=== PATIENT | male | born 1955 | race Caucasian/White ===

== ENCOUNTER 2021-04-18 12:05 | Inpatient (IN) | payer OTHER ==
[2021-04-18] MEDS ORDERED: NICOTINE 10 MG CARTRIDGE (INHALER) IH PRN (12:22)
[2021-04-18] MEDS ORDERED: MENTHOL/PHENOL 1 EACH UD MM PRN (12:22)
[2021-04-18] MEDS ORDERED: MAG HYDROX/AL HYDROX/SIMETH 30 ML UNIT-DOSE CUP PO PRN (12:22)
[2021-04-18] MEDS ORDERED: ACETAMINOPHEN 325 MG TABLET (FP) PO PRN ×2 (12:22)
[2021-04-18] MEDS ORDERED: BUPRENORPHINE HCL 150 MCG, BUPRENORPHINE HCL 75 MCG BC ONE (12:22)
[2021-04-18] MEDS ORDERED: ONDANSETRON *ODT* 4 MG TABLET SL PRN (12:22)
[2021-04-18] MEDS ORDERED: BISMUTH SUBSALICYLATE 524 MG/30 ML PO PRN (12:22)
[2021-04-18] MEDS ORDERED: MAGNESIUM CITRATE 300 ML BOTTLE PO PRN (12:22)
[2021-04-18] MEDS ORDERED: chlordiazePOXIDE HCL 25 MG CAPSULE PO PRN (12:22)
[2021-04-18] MEDS ORDERED: IBUPROFEN 400 MG TABLET (FP) PO PRN (12:22)
[2021-04-18] MEDS ORDERED: BUPRENORPHINE HCL 75 MCG FILM BC ONE (12:59)
[2021-04-18] MEDS ORDERED: BUPRENORPHINE HCL 150 MCG FILM BC ONE (12:59)
[2021-04-18] MEDS: cloNIDine HCL 0.1 MG TABLET PO PRN (13:08)
[2021-04-18] MEDS ORDERED: cloNIDine HCL 0.1 MG TABLET PO ONE (14:00)
[2021-04-18] MEDS: PRENATAL VITAMINS W/ FOLIC ACID TABLET (FP) PO SCH (14:58)
[2021-04-18] MEDS: NICOTINE 14 MG/24 HOURS TOPICAL PATCH TD SCH (14:58)
[2021-04-18] MEDS: hydrOXYzine PAMOATE 25 MG CAPSULE (FP) PO SCH ×3 (14:58→22:10)
[2021-04-18] MEDS: chlordiazePOXIDE HCL 25 MG CAPSULE PO SCH ×3 (14:59→22:08)
[2021-04-18] MEDS: MAGNESIUM HYDROX 2400MG/30ML ORAL SUSPENSION 30 ML CUP PO PRN (15:02)
[2021-04-18 17:21] LABS: ALBUMIN 4.4 g/dl (3.4-5.0); BLOOD UREA NITROGEN 18.1 mg/dL (7-18); CALCIUM 9.6 mg/dL (8.5-10.1); HEMATOCRIT 45.2 % (35.4-49); HEMOGLOBIN 14.7 GM/dL (11.7-16.9); MCH 30.6 pg (25.7-33.7); MCHC 32.6 g/dl (32.0-35.9); MEAN CELL VOLUME 93.7 fl (80-96); MEAN PLT VOLUME 9.5 fl (7.5-11.1); PLATELET COUNT 270 10^3/uL (134-434); RBC 4.82 M/mm3 (4.00-5.60); RDW 14.6 % (11.9-15.9); WHITE BLOOD COUNT 9.8 K/mm3 (4.0-10.0)
[2021-04-18 17:24] LABS: CREATININE 1.1 mg/dL (0.55-1.3)
[2021-04-18 17:26] LABS: BILIRUBIN,TOTAL 1.7 mg/dL (0.2-1); TOT PROT 8.3 g/dl (6.4-8.2)
[2021-04-18 18:05] VITALS: BMI 19.4
[2021-04-18] MEDS: MELATONIN 5 MG TABLETS PO SCH (22:05)
[2021-04-18] MEDS: THIAMINE HCL 100 MG TABLET (FP) PO SCH (22:05)
[2021-04-18] MEDS: QUEtiapine FUMARATE 50 MG TABLET PO SCH (22:08)
[2021-04-18] MEDS: PRAZOSIN HCL 1 MG CAPSULE PO SCH (22:09)
[2021-04-18] MEDS: busPIRone HCL 10 MG TABLET (FP) PO SCH (22:09)
[2021-04-19] MEDS ORDERED: BUPRENORPHINE HCL 150 MCG FILM BC ONE ×2 (04:52→17:21)
[2021-04-19] MEDS ORDERED: BUPRENORPHINE HCL 75 MCG FILM BC ONE ×2 (04:53→17:20)
[2021-04-19] MEDS: METHOCARBAMOL 500 MG TABLET PO PRN ×2 (05:41→17:59)
[2021-04-19] MEDS: hydrOXYzine PAMOATE 25 MG CAPSULE (FP) PO SCH ×5 (05:42→22:25)
[2021-04-19] MEDS: chlordiazePOXIDE HCL 25 MG CAPSULE PO SCH ×4 (05:42→22:25)
[2021-04-19] MEDS: BUPRENORPHINE HCL 150 MCG, BUPRENORPHINE HCL 75 MCG BC SCH ×2 (05:43→18:00)
[2021-04-19] MEDS: MAGNESIUM HYDROX 2400MG/30ML ORAL SUSPENSION 30 ML CUP PO PRN (05:45)
[2021-04-19] MEDS: busPIRone HCL 10 MG TABLET (FP) PO SCH ×2 (10:13→22:25)
[2021-04-19] MEDS: NICOTINE 14 MG/24 HOURS TOPICAL PATCH TD SCH (10:13)
[2021-04-19] MEDS: PRENATAL VITAMINS W/ FOLIC ACID TABLET (FP) PO SCH (10:14)
[2021-04-19] MEDS: PRAZOSIN HCL 1 MG CAPSULE PO SCH (22:25)
[2021-04-19] MEDS: MELATONIN 5 MG TABLETS PO SCH (22:25)
[2021-04-19] MEDS: THIAMINE HCL 100 MG TABLET (FP) PO SCH (22:25)
[2021-04-19] MEDS: QUEtiapine FUMARATE 50 MG TABLET PO SCH (22:25)
[2021-04-20] MEDS: chlordiazePOXIDE HCL 25 MG CAPSULE PO SCH ×4 (06:43→22:23)
[2021-04-20] MEDS: BUPRENORPHINE HCL 450 MCG FILM BC SCH ×2 (06:45→17:55)
[2021-04-20] MEDS: hydrOXYzine PAMOATE 25 MG CAPSULE (FP) PO SCH ×5 (07:15→22:23)
[2021-04-20] MEDS: busPIRone HCL 10 MG TABLET (FP) PO SCH ×2 (10:20→22:23)
[2021-04-20] MEDS: NICOTINE 14 MG/24 HOURS TOPICAL PATCH TD SCH (10:21)
[2021-04-20] MEDS: PRENATAL VITAMINS W/ FOLIC ACID TABLET (FP) PO SCH (10:21)
[2021-04-20] MEDS: DOCUSATE SODIUM 100 MG CAPSULE (FP) PO PRN ×2 (10:23→22:22)
[2021-04-20 10:32] LABS: BILIRUBIN,TOTAL 0.2 mg/dL (0.2-1)
[2021-04-20] MEDS: METHOCARBAMOL 500 MG TABLET PO PRN (17:54)
[2021-04-20] MEDS: THIAMINE HCL 100 MG TABLET (FP) PO SCH (22:23)
[2021-04-20] MEDS: QUEtiapine FUMARATE 50 MG TABLET PO SCH (22:23)
[2021-04-20] MEDS: MELATONIN 5 MG TABLETS PO SCH (22:23)
[2021-04-20] MEDS: PRAZOSIN HCL 1 MG CAPSULE PO SCH (22:59)
[2021-04-21] MEDS ORDERED: chlordiazePOXIDE HCL 10 MG CAPSULE PO PRN
[2021-04-21] MEDS: BUPRENORPHINE/NALOXONE 4 MG/1 MG FILM PACKET SL SCH ×3 (05:50→18:03)
[2021-04-21] MEDS: hydrOXYzine PAMOATE 25 MG CAPSULE (FP) PO SCH ×5 (05:51→22:21)
[2021-04-21] MEDS: chlordiazePOXIDE HCL 10 MG CAPSULE PO SCH ×4 (05:51→22:21)
[2021-04-21] MEDS: busPIRone HCL 10 MG TABLET (FP) PO SCH ×2 (10:15→22:21)
[2021-04-21] MEDS: NICOTINE 14 MG/24 HOURS TOPICAL PATCH TD SCH (10:15)
[2021-04-21] MEDS: DOCUSATE SODIUM 100 MG CAPSULE (FP) PO PRN ×2 (10:15→18:02)
[2021-04-21] MEDS: PRENATAL VITAMINS W/ FOLIC ACID TABLET (FP) PO SCH (10:15)
[2021-04-21] MEDS ORDERED: SODIUM PHOSPHATE/NA BIPHOS 133 ML ENEMA RC PRN (12:19)
[2021-04-21] MEDS ORDERED: LACTULOSE 20 GM/30 ML UDC (FOR ORAL USE ONLY) PO ONE (13:00)
[2021-04-21] MEDS: MAGNESIUM HYDROX 2400MG/30ML ORAL SUSPENSION 30 ML CUP PO PRN (18:06)
[2021-04-21] MEDS: THIAMINE HCL 100 MG TABLET (FP) PO SCH (22:20)
[2021-04-21] MEDS: QUEtiapine FUMARATE 50 MG TABLET PO SCH (22:20)
[2021-04-21] MEDS: cloNIDine HCL 0.1 MG TABLET PO PRN (22:20)
[2021-04-21] MEDS: MELATONIN 5 MG TABLETS PO SCH (22:20)
[2021-04-21] MEDS: METHOCARBAMOL 500 MG TABLET PO PRN (22:21)
[2021-04-22] MEDS: PRAZOSIN HCL 1 MG CAPSULE PO SCH ×2 (00:49→22:14)
[2021-04-22] MEDS: hydrOXYzine PAMOATE 25 MG CAPSULE (FP) PO SCH ×5 (05:59→22:14)
[2021-04-22] MEDS: chlordiazePOXIDE HCL 10 MG CAPSULE PO SCH ×2 (06:00→17:24)
[2021-04-22] MEDS ORDERED: BUPRENORPHINE/NALOXONE 8 MG/2 MG FILM PACKET SL ONE (06:00)
[2021-04-22] MEDS: busPIRone HCL 10 MG TABLET (FP) PO SCH ×2 (10:37→22:14)
[2021-04-22] MEDS: NICOTINE 14 MG/24 HOURS TOPICAL PATCH TD SCH (10:38)
[2021-04-22] MEDS: PRENATAL VITAMINS W/ FOLIC ACID TABLET (FP) PO SCH (10:38)
[2021-04-22] MEDS: MELATONIN 5 MG TABLETS PO SCH (22:14)
[2021-04-22] MEDS: QUEtiapine FUMARATE 50 MG TABLET PO SCH (22:14)
[2021-04-22] MEDS: THIAMINE HCL 100 MG TABLET (FP) PO SCH (22:14)
[2021-04-22] MEDS: METHOCARBAMOL 500 MG TABLET PO PRN (22:14)
[2021-04-23] MEDS ORDERED: chlordiazePOXIDE HCL 10 MG CAPSULE PO ONE (05:00)
[2021-04-23] MEDS: hydrOXYzine PAMOATE 25 MG CAPSULE (FP) PO SCH ×2 (05:51→09:12)
[2021-04-23 09:03] VITALS: BP 147/77; PULSE 60; TEMP 97.2
[2021-04-23] MEDS: busPIRone HCL 10 MG TABLET (FP) PO SCH (09:12)
[2021-04-23] MEDS: PRENATAL VITAMINS W/ FOLIC ACID TABLET (FP) PO SCH (09:12)
[2021-04-23] MEDS: NICOTINE 14 MG/24 HOURS TOPICAL PATCH TD SCH (09:12)
== END 2021-04-23 09:30 | disposition home or self-care (01) | DRG 773 ==
LOC: YASAS 12:05 → Y3N 12:57
PROVIDERS: ADMIT Allergy & Immunology; ATTEND Allergy & Immunology
PROC: HZ2ZZZZ Detoxification Services for Substance Abuse Treatment (ICD-10-PCS; principal; 2021-04-18)
DX: F11.23 Opioid dependence with withdrawal (principal); F10.230 Alcohol dependence with withdrawal, uncomplicated; F17.210 Nicotine dependence, cigarettes, uncomplicated; F19.24 Other psychoactive substance dependence with psychoactive substance-induced mood disorder; F41.9 Anxiety disorder, unspecified; F32.A Depression, unspecified; G47.00 Insomnia, unspecified; K59.00 Constipation, unspecified; R73.9 Hyperglycemia, unspecified; Z56.0 Unemployment, unspecified; Z59.01 Sheltered homelessness
CPT/HCPCS: 36415; 71045-TC-FY; 80053; 82247; 82947; 85027; 86780; 93005; 93010; C9803; J0735; Q0162; U0003; U0005